=== PATIENT | female | born 1945 ===

== ENCOUNTER → 2016-09-18 | Outpatient (REF) ==
[2016-09-18 08:57] LABS: INR 1.1 (0.8-3.0); PROTHROMBIN TIME 12.1 SECONDS (9.7-12.8)
== END ==
LOC: ZMSC 08:51
PROVIDERS: Orthopaedic Surgery
DX: Z01.89 Encounter for other specified special examinations (principal)

== ENCOUNTER → 2016-09-18 | Outpatient (CLI) | payer SELFPAY | LOC: ZMSC 09:45 | DX: Z01.89 Encounter for other specified special examinations (principal) ==